=== PATIENT | female | born 1965 | race Caucasian/White ===

== ENCOUNTER → 2017-09-17 | Outpatient (CLI) | payer BC ==
[~2017-09-17] MED LIST: ASPIR 8181 MG PO; ATORVASTATIN CA20 MG PO; BASAGLAR KWIKPEN SC; DICYCLOMINE HCL20 MG PO; FERROUS SULFAT325 MG PO; FISH OIL 1,0001 EAC2 PO; FLOVENT HFA17 GM INH; FUROSEMIDE40 MG PO; HYDROCHLOROTHIA25 MG PO; KOMBIGLYZE XR1 EAC2 PO; LORATADINE10 MG PO; LOSARTAN POTASS25 MG PO; LOVAZA1 GM PO; METOPROLOL TART25 MG PO; NOVOLOG100 UNITS1 SC; OMEPRAZOLE20 MG PO; ONE DAILY1 EAC1 PO; PANTOPRAZOLE SO40 MG PO; PLAVIX75 MG PO; PRO AIR INH; PROZAC40 MG PO; RANEXA500 MG PO; SPIRIVA18 MCG INH; SPIRONOLACTONE25 MG PO; SYMBICORT 16010.2 GM INH; TRULICITY INJ; TYLENOL WITH C1 EACH PO; XOPENEX HFA15 GM INH; ZOFRAN ODT4 MG PO
--- NOTE | 2017-09-17 12:00 | Diagnostic Imaging Report ---
PROCEDURE:ABDOMINAL ULTRASOUND COMPARISON:Patients [facility], CT, CT CHEST W, 04/02/2017, 18:09. INDICATIONS:Fluid retention TECHNIQUE: Lynne scale color Doppler ultrasound abdomen FINDINGS: Imaged segments of the inferior vena cava and abdominal aorta are normal. Normal pancreatic head and proximal body. The tail is obscured by bowel gas. Right liver span 15.4 cm. Normal echogenicity and contour. Portal vein diameter 7 mm; normal flow direction. Cholecystectomy. Common bile duct diameter 9 mm. No intrahepatic bile duct dilation. Right kidney length 11.9 cm. Left kidney length 11 cm. Normal kidneys. Spleen length 10.3 cm. No ascites. CONCLUSION: Cholecystectomy. Otherwise, normal abnormal ultrasound. Dictated by: Bryan Birminghma M.D. on 09/17/2017 at 12:01 Electronically approved by: Bryan Birmingham M.D. on 09/17/2017 at 12:01
== END ==
LOC: US 10:30
PROVIDERS: ATTEND Family Medicine
DX: E87.70 Fluid overload, unspecified (principal)
CPT/HCPCS: 76700

== ENCOUNTER → 2017-10-03 | Day surgery (SDC) | payer BC ==
[2017-09-29 14:35] LABS: BASOPHILS % 0.6 % (0.0-1.0); EOSINOPHILS # (AUTO) 0.1 (0.0-0.4); EOSINOPHILS % 1.4 % (0.0-6.0); HEMATOCRIT 35.9 % (34.2-44.1); HEMOGLOBIN 11.9 g/dL (12.0-16.0); LYMPHOCYTES # (AUTO) 1.9 (1.0-3.2); LYMPHOCYTES % 29.9 % (18.0-39.1); MEAN CORPUSCULAR HEMOGLOBIN 27.7 pg (28-32); MEAN CORPUSCULAR HGB CONC 33.1 g/dL (31-35); MEAN CORPUSCULAR VOLUME 83.7 fL (81-99); MONOCYTES # (AUTO) 0.8 (0.2-0.8); MONOCYTES % 12.5 % (4.4-11.3); NEUTROPHILS # (AUTO) 3.5 (2.1-6.9); NEUTROPHILS % 55.1 % (38.7-80.0); PLATELET COUNT 236 x10e3/uL (140-360); RED BLOOD COUNT 4.29 x10e6/uL (3.6-5.1); RED CELL DISTRIBUTION WIDTH 13.9 % (11.7-14.4)
[~2017-10-03] MED LIST changes: +FENTANYL CITRATE/PF 100MCG/2 ML INJ ONE; +LIDOCAINE HCL 2% LOCAL INJ 5 ML SDV VIAL INJ ONE; +MIDAZOLAM HCL 2 MG/2 ML VIAL ONE; +PROPOFOL IV EMULSION 10 MG/ML 50 ML VIAL ONE
--- OUTSIDE RECORDS SUMMARY | 2017-10-03 11:18 | XMS REPORT ---
Author Author [facility] Address Unknown Phone Unavailable Care Team Providers Care Picking Tech Name Role Phone SANDRINE CONNELL Unavailable Unavailable SALLY LOVELL Unavailable Unavailable COHN, SOUHEIL Unavailable Unavailable Problems This patient has no known problems. Allergies, Adverse Reactions, Alerts This patient has no known allergies or adverse reactions. Medications This patient has no known medications. Results Test Description Test Time Test Comments Text Results Atomic Results Result Comments US ABDOMEN COMPLETE [place] [address] Patient Name: ROSARIO ANDRADE MR #: [id number] : 1965 Age/Sex: 51/F Req # : [id number] Adm Physician: Ordered by: SANDRINE CONNELL DO Report #: [id number] Location: US Room/Bed: Procedure: [id number] US/US ABDOMEN COMPLETE Exam Date: 09/17/17 Exam Time : 1050 REPORT STATUS: Signed PROCEDURE: ABDOMINAL ULTRASOUND COMPARISON: [facility], CT, CT CHEST W, 04/02/2017, 18:09. INDICATIONS: Fluid retention TECHNIQUE: Lynne scale color Doppler ultrasound abdomen FINDINGS: Imaged segments of the inferior vena cava and abdominal aorta are normal. Normal pancreatic head and proximal body. The tail is obscured by bowel gas. Right liver span 15.4 cm. Normal echogenicity and contour. Portal vein diameter 7 mm; normal flow direction. Cholecystectomy. Common bile duct diameter 9 mm. No intrahepatic bile duct dilation. Right kidney length 11.9 cm. Left kidney length 11 cm. Normal kidneys. Spleen length 10.3 cm. No ascites. CONCLUSION: Cholecystectomy. Otherwise, normal abnormal ultrasound. Dictated by: José Luis Birmingham M.D. on 09/17/2017 at 12 :01 Electronically approved by: José Luis Birmingham M.D. on 09/17/2017 at 12:01 Dictated By: JOSÉ LUIS BIRMINGHAM MD 1201 Transcribed By: PAWEL on 1201 COPY TO: SANDRINE CONNELL DO CT CHEST W [place] [address] Patient Name: ROSARIO ANDRADE MR #: [id number] : 1965 Age/Sex: 51/F Req #: [id number] Adm Physician: Ordered by: SALLY LOVELL MD Report #: [id number] Location: CT Room/Bed: Procedure: [id number] CT/CT CHEST W Exam Date: 04/02/17 Exam Time: 1818 REPORT STATUS: Signed PROCEDURE: CT scan of the chest WITH intravenous contrast, using standard protocol. TECHNIQUE: The chest was scanned utilizing a multidetector helical scanner from the lung apex through the level of the adrenal glands after the IV administration of 100 cc of Isovue 370. Coronal and sagittal multiplanar reformations were obtained. COMPARISON: [facility], CT, CT CHEST WO, 04/27/2014 , 8:09. INDICATIONS: CHEST PAIN FINDINGS: Lines/tubes: None. Lungs and Airways: The filling defects to suggest pulmonary embolism. Redemonstration of multifocal spiculated groundglass densities in which appear unchanged in size and appearance, for instance, a lesion in the in the left upper lobe laterally measures 1.85 cm on image 28 series 3, previously measuring 1.9 cm on image 18 series 3. Mild bibasilar dependent atelectasis. Pleura: The pleural spaces are clear. Heart and mediastinum : No significant mediastinal, hilar or axillary lymphadenopathy is seen. Atherosclerotic changes involving the aortic arch and the origin of major branches, particularly the brachiocephalic trunk as seen on axial image 21 series 2. Mild calcifications of the left into descending coronary artery. Soft tissues: Normal. Abdomen: Limited contrast-enhanced views of the upper abdomen show no abnormality within the visualized liver, spleen, pancreas, or kidneys. The adrenal glands are normal. Bones: No acute osseous abnormality. IMPRESSION: 1. No acute pulmonary embolism. 2. Stable bilateral spiculated groundglass densities. Marcellus Curry M.D. Dictated by: Marcellus Curry M.D. on 2016 at 19:05 Electronically approved by: Marcellus Curry M.D. on 04/02/2017 at 19:05 Dictated By: ONEAL CURRY MD, MD 04 Transcribed By : PAWEL on 04/02/171904 COPY TO: SALLY LOVELL MD Stress Test - Treadmill ONLY [place] [address] Patient Name : ROSARIO ANDRADE MR #: [id number] : 1965 Age/Sex: 51/F Adm Physician : SHRUTHI COHN MD Admit Date : 03/26/17 Location : MED/SURG Room/Bed : [facility] [place] REPORT: Cardiology Report DATE OF STUDY: March 27, 2017 NUCLEAR STRESS TEST Resting Data: Heart rate 75, resting blood pressure 111/88, resting EKG normal sinus rhythm with nonspecific repolarization abnormality. Stress Data: After a total of 8 minutes and 37 seconds of Hank protocol treadmill stress test with 2 minutes and 37 seconds into stage 3, heart rate lizandro to peak of 129 beats per minute. Blood pressure increased to a peak of 151/111. There were no significant ST changes or arrhythmias throughout stress or recovery. The patient felt fatigued and had dyspnea with lightheadedness and chest heaviness at peak exercise. Peak METs of 10.1. Heart rate by blood pressure product was 17, 265. Myocardial perfusion reveals normal rest and stress perfusion. GATED images demonstrate hyperdynamic left ventricular systolic function with normal regional wall motion. Left ventricular ejection fraction more than 70%. CONCLUSION 1. Normal hemodynamic response to submaximal stress test. 2. Normal electrocardiographic response to submaximal stress test. 3. Normal myocardial perfusion response to submaximal stress test. 4. Good exercise functional capacity achieving 10.1 METs. 5. Hyperdynamic left ventricular systolic function with left ventricular ejection fraction more than 70% and normal regional wall motion. Of note, the patient describes a history of COPD and states longstanding symptoms and prior treatment for COPD Job#: [id number] Signature Date Dictated By: CHRIS SHEIKH MD Transcribed By: EDS on 03/27/17 <Electronically signed by CHRIS SHEIKH MD><<Signature on File>>04/01/17 0919 COPY TO: CHEST SINGLE (PORTABLE) [place] [address] Patient Name: ROSARIO ANDRADE MR #: [id number] : 1965 Age/Sex: 51/F Req #: [id number] Adm Physician: Ordered by: EUGENE WALLS MD Report #: [id number] Location: ER Room/Bed: Procedure: [id number] DX/CHEST SINGLE (PORTABLE) Exam Date: 03/26/17 Exam Time: 1153 REPORT STATUS: Signed PROCEDURE: A single AP view of the chest. COMPARISON: None. INDICATIONS: CHEST PAIN FINDINGS: Lines/tubes: None. Lungs: The lungs are well inflated and clear. There is no evidence of pneumonia or pulmonary edema. Pleura: There is no pleural effusion or pneumothorax. Heart and mediastinum: The heart and the mediastinum are unremarkable. Bones: No acute bony abnormality. IMPRESSION: No acute radiographic abnormality. Dictated by: Дмитрий Barnes M.D. on 03/26/2017 at 12:28 Electronically approved by: Дмитрий Barnes M.D. on 03/26/2017 at 12:28 Dictated By: ДМИТРИЙ BARNES MD 1228 Transcribed By: PAWEL on 03/26/178 COPY TO: EUGENE WALLS MD
[2017-10-03 16:53] LABS: WBC,FECAL (FECAL LACTOFERRIN) POSITIVE (NEGATIVE)
--- NOTE | 2017-10-03 17:23 | Operative Report ---
DATE OF PROCEDURE: October 03, 2017 REFERRING PHYSICIAN: Dr. Eduardo Connell. PROCEDURE PERFORMED 1. Esophagogastroduodenoscopy with esophageal dilatation and biopsies. 2. Colonoscopy with polypectomy and biopsies. INDICATIONS FOR ESOPHAGOGASTRODUODENOSCOPY: Upper abdominal pain, nausea, heartburn, dysphagia to solids. INDICATIONS FOR COLONOSCOPY: Colorectal cancer screening, personal history of colon polyps, history of diarrhea. MEDICATION: Patient was done under MAC. Please see anesthesiologist's note. PROCEDURE: With patient in left lateral decubitus position, flexible fiberoptic Olympus gastroscope was introduced into the esophagus under direct visualization without any difficulty. There was some patchy erythema noted in distal esophagus. A mild stricture was noted at the GE junction and it was dilated to a size 52-F[place] Luna. The scope was then advanced with ease into the stomach traversing a small hiatal hernia. Mucosa overlying the antrum and the body revealed some patchy erythema and mild to moderate edema and biopsies were obtained sent to stain for H. pylori. Pylorus appeared to be of normal contour and shape. Was intubated with ease and the scope was advanced all the way to the 2nd portion of the duodenum. The scope was then withdrawn slowly, and the mucosa overlying the proximal 2nd portion grossly appeared to be within normal limits. Biopsies were obtained and sent to check for celiac disease considering patient's history of diarrhea. The mucosa overlying the duodenal bulb appeared to be within normal limits. The scope was then withdrawn back into the stomach and retroflexed and the mucosa overlying the fundus and the cardia appeared to be within normal limits. The scope was then straightened out, it was subsequently withdrawn. Patient tolerated procedure well. IMPRESSION 1. Distal esophagitis. 2. Esophageal stricture at gastroesophageal junction dilated to size 52-F[place] Luna. 3. Small sliding hiatal hernia. 4. Gastritis biopsied. Biopsies sent to stain for H. pylori. 5. Rule out sprue. PLAN: Follow up histology. Continue Protonix 40 mg a.c. b.i.d. The patient was then turned around and after adequate lubrication of the anal canal, a flexible fiberoptic Olympus colonoscope was inserted into the rectum with ease and advanced all the way to the cecum. Mucosa overlying the cecum appeared to be within normal limits. The ileocecal valve was intubated. Scope was advanced into the terminal ileum. Biopsies were obtained. The scope was then withdrawn back into the colon. It was then withdrawn slowly. Mucosa overlying the ascending transverse colon appeared to be within normal limits. Mild inflammatory changes were noted in the left colon. Multiple random biopsies were obtained. Two polyps were hot biopsied from the sigmoid. Two polyps were hot biopsied from the rectum. Scope was then retroflexed into the distal rectum. Small internal hemorrhoids were noted, none of which was actively bleeding. The scope was then straightened out and was subsequently withdrawn after securing an adequate stool specimen that was sent for the appropriate stool studies. Patient tolerated the procedure well. IMPRESSION 1. Mild patchy left-sided colitis. 2. Sigmoid colon polyps hot biopsied times 2. 3. Rectal polyps hot biopsied times 2. 4. Internal hemorrhoids, none actively bleeding. PLAN: Follow up histology. Follow up stool studies. Initiate Bentyl 10 mg 1 p.o. t.i.d. VSL #3 DS one p.o. b.i.d. Job#: [id number] JANAE cc:SANDRINE CONNELL DO
[2017-10-04 14:36] LABS: C DIFFICILE TOXIN A&B AMP PROB NEGATIVE (NEGATIVE)
== END | disposition home or self-care (01) ==
LOC: OR 11:15
PROVIDERS: ATTEND Internal Medicine Gastroenterology
DX: Z12.11 Encounter for screening for malignant neoplasm of colon (principal); K63.5 Polyp of colon; K62.1 Rectal polyp; K29.50 Unspecified chronic gastritis without bleeding; K22.2 Esophageal obstruction; K51.50 Left sided colitis without complications; K25.9 Gastric ulcer, unspecified as acute or chronic, without hemorrhage or perforation; K20.9 Esophagitis, unspecified; K44.9 Diaphragmatic hernia without obstruction or gangrene; K76.0 Fatty (change of) liver, not elsewhere classified; K21.9 Gastro-esophageal reflux disease without esophagitis; K64.8 Other hemorrhoids; I25.810 Atherosclerosis of coronary artery bypass graft(s) without angina pectoris; J44.9 Chronic obstructive pulmonary disease, unspecified; I25.2 Old myocardial infarction; I11.0 Hypertensive heart disease with heart failure; I50.9 Heart failure, unspecified; E11.9 Type 2 diabetes mellitus without complications; F32.9 Major depressive disorder, single episode, unspecified; F41.9 Anxiety disorder, unspecified; Z01.810 Encounter for preprocedural cardiovascular examination; Z01.812 Encounter for preprocedural laboratory examination; Z88.1 Allergy status to other antibiotic agents; Z88.0 Allergy status to penicillin; Z79.02 Long term (current) use of antithrombotics/antiplatelets; Z79.4 Long term (current) use of insulin; Z95.1 Presence of aortocoronary bypass graft; Z86.73 Personal history of transient ischemic attack (TIA), and cerebral infarction without residual deficits; Z87.891 Personal history of nicotine dependence
CPT/HCPCS: 36415 ×2; 43239; 43450; 45384; 82948; 83630; 83993; 85025; 87045; 87177; 87328; 87493; 93005; J2001; J2250; 45378; 45380

== ENCOUNTER → 2021-02-13 | Day surgery (SDC) | payer BC ==
[2021-02-08 10:32] LABS: BASOPHILS % 0.5 % (0.0-1.0); EOSINOPHILS # (AUTO) 0.2 (0.0-0.4); EOSINOPHILS % 2.3 % (0.0-6.0); HEMOGLOBIN 12.2 g/dL (12.0-16.0); LYMPHOCYTES # (AUTO) 1.8 (1.0-3.2); LYMPHOCYTES % 23.7 % (18.0-39.1); MEAN CORPUSCULAR HEMOGLOBIN 27.3 pg (28-32); MEAN CORPUSCULAR HGB CONC 32.1 g/dL (31-35); MONOCYTES # (AUTO) 0.5 (0.2-0.8); MONOCYTES % 6.2 % (4.4-11.3); NEUTROPHILS # (AUTO) 4.9 (2.1-6.9); NEUTROPHILS % 66.9 % (38.7-80.0); PLATELET COUNT 266 x10e3/uL (140-360); RED BLOOD COUNT 4.47 x10e6/uL (3.6-5.1); RED CELL DISTRIBUTION WIDTH 13.2 % (11.7-14.4)
[2021-02-08 11:25] LABS: ALBUMIN/GLOBULIN RATIO 1.3 (0.8-2.0); ANION GAP 15.2 mmol/L (8-16); CALCIUM 9.8 mg/dL (8.4-10.2); CREATININE, SERUM 0.71 mg/dL (0.57-1.11); POTASSIUM 4.2 mmol/L (3.5-5.1)
[~2021-02-13] VITALS: Ht 160 cm; Wt 86.2 kg
[~2021-02-13] MED LIST changes: +ALPRAZOLAM 0.5 MG TAB ONE; +DIPHENHYDRAMINE HCL 25 MG CAP ONE; +HEPARIN SOD/SOD CHLORIDE 2,000 ML ONE; +IOPAMIDOL 370 MG/ML 200 ML INFUS..BTL INJ ONE; +LIDOCAINE HCL 2% LOCAL 20 ML VIAL ONE; -LIDOCAINE HCL 2% LOCAL INJ 5 ML SDV VIAL INJ ONE; -PROPOFOL IV EMULSION 10 MG/ML 50 ML VIAL ONE; +SODIUM CHLORIDE 0.9% 1000ML 1,000 ML ONE
[2021-02-13 14:45] VITALS: BP 115/52
[2021-02-13 17:00] VITALS: BP 126/69
[2021-02-13 17:15] VITALS: BP 126/71
[2021-02-13 17:30] VITALS: BP 116/73
[2021-02-13 17:45] VITALS: BP 125/69
[2021-02-13 18:16] VITALS: BP 125/77
== END | disposition home or self-care (01) ==
LOC: CATH LAB 14:46
PROVIDERS: ATTEND Internal Medicine Interventional Cardiology
DX: I25.708 Atherosclerosis of coronary artery bypass graft(s), unspecified, with other forms of angina pectoris (principal); R94.39 Abnormal result of other cardiovascular function study; E78.00 Pure hypercholesterolemia, unspecified; I10 Essential (primary) hypertension; J44.9 Chronic obstructive pulmonary disease, unspecified; Z01.812 Encounter for preprocedural laboratory examination; Z20.822 Contact with and (suspected) exposure to COVID-19; Z79.4 Long term (current) use of insulin; Z79.82 Long term (current) use of aspirin; Z79.02 Long term (current) use of antithrombotics/antiplatelets; Z68.33 Body mass index [BMI] 33.0-33.9, adult; Z95.1 Presence of aortocoronary bypass graft
CPT/HCPCS: 36415 ×2; 76937; 80053; 82948; 83880; 85025; 93455; C1760; C1769; J2001; J2250; J3010; J7030; Q9967; U0002; 99152; 99153

== ENCOUNTER → 2021-03-28 | Day surgery (SDC) | payer BC ==
[2021-03-19 13:47] LABS: BASOPHILS % 0.6 % (0.0-1.0); EOSINOPHILS # (AUTO) 0.2 (0.0-0.4); EOSINOPHILS % 2.3 % (0.0-6.0); HEMATOCRIT 36.3 % (34.2-44.1); HEMOGLOBIN 11.8 g/dL (12.0-16.0); LYMPHOCYTES # (AUTO) 2.1 (1.0-3.2); LYMPHOCYTES % 29.3 % (18.0-39.1); MEAN CORPUSCULAR HEMOGLOBIN 27.6 pg (28-32); MEAN CORPUSCULAR HGB CONC 32.5 g/dL (31-35); MEAN CORPUSCULAR VOLUME 84.8 fL (81-99); MONOCYTES # (AUTO) 0.4 (0.2-0.8); MONOCYTES % 5.8 % (4.4-11.3); NEUTROPHILS # (AUTO) 4.5 (2.1-6.9); NEUTROPHILS % 61.6 % (38.7-80.0); PLATELET COUNT 243 x10e3/uL (140-360); RED BLOOD COUNT 4.28 x10e6/uL (3.6-5.1); RED CELL DISTRIBUTION WIDTH 13.2 % (11.7-14.4)
[~2021-03-28] MED LIST changes: -ALPRAZOLAM 0.5 MG TAB ONE; +COLESTIPOL HCL1 GM PO; -DIPHENHYDRAMINE HCL 25 MG CAP ONE; -HEPARIN SOD/SOD CHLORIDE 2,000 ML ONE; +INSULIN REGULAR, HUMAN 100 UNIT/1 ML ONE; -IOPAMIDOL 370 MG/ML 200 ML INFUS..BTL INJ ONE; -LIDOCAINE HCL 2% LOCAL 20 ML VIAL ONE; +MECLIZINE HCL12.5 MG PO; +NOVOLIN 70100 UNIT/3 SQ; -SODIUM CHLORIDE 0.9% 1000ML 1,000 ML ONE
[2021-03-28 12:20] VITALS: BP 113/55
== END | disposition home or self-care (01) ==
LOC: ENDO 10:26
PROVIDERS: ATTEND Internal Medicine Gastroenterology
DX: K20.90 Esophagitis, unspecified without bleeding (principal); K29.50 Unspecified chronic gastritis without bleeding; K44.9 Diaphragmatic hernia without obstruction or gangrene; K22.89 Other specified disease of esophagus; E11.9 Type 2 diabetes mellitus without complications; K21.9 Gastro-esophageal reflux disease without esophagitis; G47.33 Obstructive sleep apnea (adult) (pediatric); J44.9 Chronic obstructive pulmonary disease, unspecified; I25.810 Atherosclerosis of coronary artery bypass graft(s) without angina pectoris; F41.9 Anxiety disorder, unspecified; F32.A Depression, unspecified; Z01.810 Encounter for preprocedural cardiovascular examination; Z01.812 Encounter for preprocedural laboratory examination; Z20.822 Contact with and (suspected) exposure to COVID-19; Z79.02 Long term (current) use of antithrombotics/antiplatelets; Z79.82 Long term (current) use of aspirin; Z79.4 Long term (current) use of insulin; Z95.1 Presence of aortocoronary bypass graft; Z86.73 Personal history of transient ischemic attack (TIA), and cerebral infarction without residual deficits
CPT/HCPCS: 36415 ×2; 43239; 43450; 82948; 85025; 93005; C9113; J1817; J2250; J3010; U0002 ×2

== ENCOUNTER → 2024-01-14 | Day surgery (SDC) | payer BC ==
[2024-01-08 11:44] LABS: BASOPHILS # (AUTO) 0.1 (0.0-0.1); BASOPHILS % 0.9 % (0.0-1.0); EOSINOPHILS # (AUTO) 0.1 (0.0-0.4); EOSINOPHILS % 1.3 % (0.0-6.0); HEMATOCRIT 46.9 % (34.2-44.1); HEMOGLOBIN 14.5 g/dL (12.0-16.0); LYMPHOCYTES # (AUTO) 2.4 (1.0-3.2); LYMPHOCYTES % 30.5 % (18.0-39.1); MEAN CORPUSCULAR HGB CONC 30.9 g/dL (31-35); MEAN CORPUSCULAR VOLUME 87.2 fL (81-99); MONOCYTES # (AUTO) 0.7 (0.2-0.8); MONOCYTES % 8.9 % (4.4-11.3); NEUTROPHILS # (AUTO) 4.6 (2.1-6.9); PLATELET COUNT 242 x10e3/uL (140-360); RED BLOOD COUNT 5.38 x10e6/uL (3.6-5.1); RED CELL DISTRIBUTION WIDTH 13.7 % (11.7-14.4); WHITE BLOOD COUNT 7.88 x10e3/uL (4.8-10.8)
[~2024-01-14] MED LIST changes: +DONEPEZIL HCL5 MG PO; +EPHEDRINE SULFATE INJ 50 MG/ML VIAL ONE; -INSULIN REGULAR, HUMAN 100 UNIT/1 ML ONE; +INSULIN SQ; +ISOSORBIDE MONO30 MG PO; +LIDOCAINE HCL 2% LOCAL INJ 5 ML SDV VIAL INJ ONE; +METOCLOPRAMIDE HCL 10 MG/2ML VIAL ONE; -MIDAZOLAM HCL 2 MG/2 ML VIAL ONE; +POTASSIUM CHLO20 ME1 PO; +PROPOFOL IV EMULSION 10 MG/ML 20 ML VIAL ONE; +PROPOFOL IV EMULSION 10 MG/ML 50 ML VIAL IV ONE; +RANEXA PO; +TRULICITY4.5 MG/0.5
[2024-01-14] MEDS: LACTATED RINGER'S 1,000 ML ONE (07:26)
[2024-01-14 10:35] VITALS: BP 145/64; PULSE 61; RESP 16; O2SAT 97
== END | disposition home or self-care (01) ==
LOC: OR 06:50
PROVIDERS: ATTEND Internal Medicine Gastroenterology
DX: K20.90 Esophagitis, unspecified without bleeding (principal); K62.1 Rectal polyp; K31.7 Polyp of stomach and duodenum; K29.70 Gastritis, unspecified, without bleeding; K52.9 Noninfective gastroenteritis and colitis, unspecified; K31.89 Other diseases of stomach and duodenum; K44.9 Diaphragmatic hernia without obstruction or gangrene; K21.9 Gastro-esophageal reflux disease without esophagitis; K62.89 Other specified diseases of anus and rectum; K64.8 Other hemorrhoids; D64.9 Anemia, unspecified; I25.810 Atherosclerosis of coronary artery bypass graft(s) without angina pectoris; I11.0 Hypertensive heart disease with heart failure; I50.9 Heart failure, unspecified; I25.2 Old myocardial infarction; E78.5 Hyperlipidemia, unspecified; J44.9 Chronic obstructive pulmonary disease, unspecified; I69.311 Memory deficit following cerebral infarction; M54.50 Low back pain, unspecified; F41.9 Anxiety disorder, unspecified; F32.A Depression, unspecified; Z88.1 Allergy status to other antibiotic agents; Z88.0 Allergy status to penicillin; Z88.8 Allergy status to other drugs, medicaments and biological substances; Z01.812 Encounter for preprocedural laboratory examination; Z79.82 Long term (current) use of aspirin; Z79.02 Long term (current) use of antithrombotics/antiplatelets; Z79.85 Long-term (current) use of injectable non-insulin antidiabetic drugs; Z79.4 Long term (current) use of insulin; Z95.1 Presence of aortocoronary bypass graft; Z87.891 Personal history of nicotine dependence
CPT/HCPCS: 36415; 43239; 43450; 45380; 45385; 83630; 83993; 85025; 87045; 87177; 87324; 87328; 87449; J2001; J2470; J2704 ×2; J2765; J3010; J7121; 45378